=== PATIENT | female | born 1960 | race Caucasian/White ===

== ENCOUNTER 2016-09-16 06:30 | Emergency (ER) | payer OTHER ==
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
[2016-09-16] MEDS ORDERED: Ondansetron 2 mg/mL 2 mL Inj IVPUSH PRN (06:55)
[2016-09-16 07:05] LABS: BASOPHILS % (AUTO) 0.4 % (0-3); EOSINOPHILS % (AUTO) 3.5 % (0-5); MONOCYTES % (AUTO) 9.5 % (4-12); Mean Corpuscular Hemoglobin 30.6 pg (27.0-35.0); Mean Corpuscular Volume 88.8 fL (81-100); NEUTROPHILS % (AUTO) 53.3 % (40-74); Platelet Count 309 bil/L (150-400)
[2016-09-16] MEDS ORDERED: HYDROmorphone 0.5 mg/0.5 mL iSecure Syringe IVPUSH PRN (07:05)
[2016-09-16] MEDS ORDERED: Ondansetron 2 mg/mL 2 mL Inj IVPUSH ONE ×2 (07:05→09:40)
[2016-09-16] MEDS: HYDROmorphone 0.5 mg/0.5 mL iSecure Syringe IVPUSH PRN ×2 (07:09→07:43)
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
[2016-09-16] MEDS ORDERED: OXYC1TAB24 PO (10:44)
[2016-09-16] MEDS ORDERED: MECL-114 PO (10:44)
[2016-09-16] MEDS ORDERED: DIAZ5TAB3 PO (10:44)
[2016-09-16] MEDS ORDERED: ONDA-53 PO (10:44)
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
== END 2016-09-16 11:00 | disposition home or self-care (01) ==
LOC: EDBD 06:30 → SED 06:30
DX: S06.0X9A Concussion with loss of consciousness of unspecified duration, initial encounter (principal); H81.10 Benign paroxysmal vertigo, unspecified ear; V89.9XXA Person injured in unspecified vehicle accident, initial encounter; Y93.9 Activity, unspecified; Y92.410 Unspecified street and highway as the place of occurrence of the external cause; Y99.8 Other external cause status; I10 Essential (primary) hypertension; Z85.3 Personal history of malignant neoplasm of breast
CPT/HCPCS: 36415; 70450; 71010; 72125; 72170; 83735; 84484; 85014; 85018; 85025; 86850; 93005; 96374; 96375; 96376; 99285; G0390; G0480; J1170; J2405